=== PATIENT | male | born 1960 | race Caucasian/White ===

== ENCOUNTER → 2022-09-16 | Outpatient (CLI) | payer OTHER | END | disposition home or self-care (01) | LOC: RADMN 10:02 | PROVIDERS: ATTEND Chiropractor | DX: S02.91XA Unspecified fracture of skull, initial encounter for closed fracture (principal); I08.2 Rheumatic disorders of both aortic and tricuspid valves; M19.041 Primary osteoarthritis, right hand; M19.042 Primary osteoarthritis, left hand; M79.89 Other specified soft tissue disorders; R07.9 Chest pain, unspecified; R00.1 Bradycardia, unspecified; M47.814 Spondylosis without myelopathy or radiculopathy, thoracic region; X58.XXXA Exposure to other specified factors, initial encounter; Y93.89 Activity, other specified; Y92.89 Other specified places as the place of occurrence of the external cause; Y99.8 Other external cause status | CPT/HCPCS: 70250; 71046; 93005; 93306 ==